=== PATIENT | female | born 1985 | race Caucasian/White ===

== ENCOUNTER → 2017-12-28 | Day surgery (SDC) | payer OTHER ==
[~2017-12-28] MED LIST: LIDOCAINE 1% PF 2 ML VIAL. ID; LIDOCAINE 2% PF Vial for OR 5 ML VIAL.; MIDAZOLAM HCL/PF 2 MG/2 ML VIAL. IV; PROPOFOL 20 ML IV; fentaNYL PF VIAL 100 MCG/2 ML VIAL IV
[2017-12-28] MEDS: IV RINGERS,LACTATED 1000ML 1,000 ML IV (11:47)
[2017-12-28 11:51] LABS: NEG OBC UR NEG; POS OBC UR POS; U PREG PATIENT NEGATIVE (NEG)
== END | disposition home or self-care (01) ==
LOC: SURG 10:56
DX: K29.50 Unspecified chronic gastritis without bleeding (principal); G43.909 Migraine, unspecified, not intractable, without status migrainosus; F41.9 Anxiety disorder, unspecified; G35 Multiple sclerosis; E03.9 Hypothyroidism, unspecified; Z90.49 Acquired absence of other specified parts of digestive tract; Z98.890 Other specified postprocedural states; Z87.442 Personal history of urinary calculi; Z87.440 Personal history of urinary (tract) infections; Z72.89 Other problems related to lifestyle; Z79.899 Other long term (current) drug therapy
CPT/HCPCS: 43239; 81025; 88305; 88342; J2704